=== PATIENT | female | born 1980 | race Two or more races ===

== ENCOUNTER 2025-05-18 11:37 | Outpatient (CLI) | payer OTHER ==
[~2025-05-18 11:37] MED LIST: BUCALSEP SPRAY30 ML MM; CIPRO500 MG PO; GILTUSS TR TAB1 EACH PO; PYRIDIUM DS200 MG PO; ZITHROMAX TRI-500 MG PO
== END 2025-05-18 11:40 | disposition home or self-care (01) ==
LOC: RAD 11:37
DX: R05.9 Cough, unspecified (principal)